=== PATIENT | female | born 1955 | race Caucasian/White ===

== ENCOUNTER → 2022-02-28 | Outpatient (CLI) | payer OTHER, SELFPAY ==
[2022-02-28 17:43] LABS: Absolute Lymphocyte Count 1.91 X10^3/uL (0.83-4.51); Basophil# 0.09 X10^3/uL; Basophil% 1.3 % (0-1); Eosinophil# 0.15 X10^3/uL; Eosinophils% 2.2 % (0-5); Hematocrit 38.6 % (37-47); Hemoglobin 13.4 g/dL (12.0-15.0); Lymphocyte # 1.91 X10^3/ul (0.83-4.51); Lymphocyte % 28.6 % (19-41); Mean Corp Hgb Conc 34.7 g/dL (32-36); Mean Corpuscular Hgb 31.5 pg (27.0-32.0); Mean Corpuscular Volume 90.8 fL (81-99); Mean Platelet Vol. 11.4 fl (6.2-12.0); Monocyte# 0.53 X10^3/uL; Monocyte% 7.9 % (0-10); NRBC Flagged by Analyzer 0 % (0-5); Neutrophil # 3.99 X10^3/uL (2.7-7.7); Neutrophil % 59.9 % (47-70); Platelet Count 261 K/mm3 (150-450); RBC Distribution Width CV 12.6 % (11.6-14.6); RBC Distribution Width SD 41.2 fl (35.1-43.9); Red Blood Count 4.25 M/mm3 (4.2-5.4); White Blood Count 6.7 K/mm3 (4.4-11.0)
[2022-02-28 17:47] LABS: CRP < 2.90 mg/L (0.0-3.0); Rheumatoid Factor < 10.0 IU/mL (<15)
[2022-02-28 17:48] LABS: Erythrocyte Sedimentation Rate 12 mm/hr (0-30)
[2022-03-02 14:07] LABS: Anti-Centromere B Ab <0.2 AI (0.0-0.9); Anti-Chromatin 0.5 AI (0.0-0.9); Anti-Jo <0.2 AI (0.0-0.9); Anti-Scleroderma-70 AB <0.2 AI (0.0-0.9); RNP Ab <0.2 AI (0.0-0.9); SJOGREN'S Anti-SS-A test < 0.2 AI (0.0-0.9); SJOGREN'S Anti-SS-B test < 0.2 AI (0.0-0.9); Smith Ab <0.2 AI (0.0-0.9)
[2022-03-04 17:58] LABS: CCP IgG Antibodies 3 units (0-19)
[2022-03-04 18:32] LABS: Anti-dsDNA Ab 9 IU/mL (0-9)
== END | disposition home or self-care (01) ==
LOC: MTLAB 15:01
PROVIDERS: PCP Family Medicine; Referring Provider Orthopaedic Surgery Sports Medicine; Visit Provider Orthopaedic Surgery Sports Medicine
DX: M79.89 Other specified soft tissue disorders (principal); M06.9 Rheumatoid arthritis, unspecified
CPT/HCPCS: 36415; 85025; 85652; 86140; 86200; 86225; 86235; 86431

== ENCOUNTER → 2022-05-02 | Outpatient (CLI) | payer OTHER, SELFPAY ==
[2022-05-02 12:27] LABS: Absolute Lymphocyte Count 1.96 X10^3/uL (0.83-4.51); Absolute Neutrophil Count 3.4 X10^3/uL (2.0-7.7); Basophil# 0.07 X10^3/uL; Basophil% 1.2 % (0-1); Eosinophil# 0.17 X10^3/uL; Eosinophils% 2.8 % (0-5); Hematocrit 42.4 % (37-47); Hemoglobin 13.8 g/dL (12.0-15.0); Lymphocyte # 1.96 X10^3/ul (0.83-4.51); Lymphocyte % 32.6 % (19-41); Mean Corp Hgb Conc 32.5 g/dL (32-36); Mean Corpuscular Hgb 30.3 pg (27.0-32.0); Mean Corpuscular Volume 93.2 fL (81-99); Mean Platelet Vol. 11.3 fl (6.2-12.0); Monocyte# 0.38 X10^3/uL; Monocyte% 6.3 % (0-10); NRBC Flagged by Analyzer 0 % (0-5); Neutrophil # 3.42 X10^3/uL (2.7-7.7); Neutrophil % 56.9 % (47-70); Platelet Count 273 K/mm3 (150-450); RBC Distribution Width CV 12.6 % (11.6-14.6); Red Blood Count 4.55 M/mm3 (4.2-5.4)
[2022-05-02 13:30] LABS: Hepatitis B Surface Antibody Reactive; Hepatitis B Surface Antigen Non-Reactive (Nonreactive); Hepatitis C Antibody Non-Reactive (Nonreactive)
[2022-05-02 14:27] LABS: ALB/GLOB Ratio 1.3 RATIO (0.9-2.4); AST(SGOT) 24 U/L (15-37); Alanine Aminotransfer ALT/SGPT 40 U/L (13-56); Albumin, Serum 4.3 g/dL (3.2-5.0); Alkaline Phosphatase 76 U/L (45-117); Anion Gap 5 (5-15); BUN 14 mg/dL (7-18); BUN/Creat Ratio 20.4 RATIO (10-20); Calcium,Total 9.9 mg/dL (8.5-10.1); Chloride 105 mmol/L (98-107); Creatinine, Serum 0.69 mg/dL (0.55-1.02); EST Glomerular Filtration Rate 91 mL/min (>60); Est Glom Filt Rate - Afr Amer 111 mL/min (>60); Globulin 3.4 g/dL (2.2-4.2); Glucose 97 mg/dL (74-106); Protein, Total 7.7 g/dL (6.4-8.2); Rheumatoid Factor < 10.0 IU/mL (<15); Sodium Level 139 mmol/L (136-145)
[2022-05-04 12:36] LABS: CCP IgG Antibodies 3 units (0-19)
== END | disposition home or self-care (01) ==
LOC: MTLAB 09:58
PROVIDERS: PCP Family Medicine; Referring Provider Internal Medicine Rheumatology; Visit Provider Internal Medicine Rheumatology
DX: M06.4 Inflammatory polyarthropathy (principal); M19.042 Primary osteoarthritis, left hand; M17.0 Bilateral primary osteoarthritis of knee; E78.5 Hyperlipidemia, unspecified
CPT/HCPCS: 36415; 80053; 85025; 86200; 86431; 86706; 86803; 87340

== ENCOUNTER → 2022-08-14 | Outpatient (CLI) | payer OTHER, SELFPAY ==
[2022-08-14 10:17] LABS: Absolute Lymphocyte Count 1.73 X10^3/uL (0.83-4.51); Basophil# 0.05 X10^3/uL; Basophil% 0.9 % (0-1); Eosinophils% 3.7 % (0-5); Hematocrit 39.8 % (37-47); Hemoglobin 13.1 g/dL (12.0-15.0); Lymphocyte # 1.73 X10^3/ul (0.83-4.51); Lymphocyte % 32.3 % (19-41); Mean Corp Hgb Conc 32.9 g/dL (32-36); Mean Corpuscular Hgb 30.5 pg (27.0-32.0); Mean Corpuscular Volume 92.6 fL (81-99); Mean Platelet Vol. 11.4 fl (6.2-12.0); Monocyte% 7.5 % (0-10); NRBC Flagged by Analyzer 0 % (0-5); Neutrophil # 2.97 X10^3/uL (2.7-7.7); Neutrophil % 55.4 % (47-70); Platelet Count 245 K/mm3 (150-450); RBC Distribution Width CV 13.9 % (11.6-14.6); RBC Distribution Width SD 46.4 fl (35.1-43.9); White Blood Count 5.4 K/mm3 (4.4-11.0)
[2022-08-14 10:28] LABS: ALB/GLOB Ratio 1.2 RATIO (0.9-2.4); AST(SGOT) 28 U/L (15-37); Alanine Aminotransfer ALT/SGPT 40 U/L (13-56); Albumin, Serum 3.8 g/dL (3.2-5.0); Alkaline Phosphatase 66 U/L (45-117); Anion Gap 3 (5-15); BUN 15 mg/dL (7-18); BUN/Creat Ratio 20.7 RATIO (10-20); Calcium,Total 9.7 mg/dL (8.5-10.1); Chloride 107 mmol/L (98-107); Creatinine, Serum 0.72 mg/dL (0.55-1.02); EST Glomerular Filtration Rate 86 mL/min (>60); Est Glom Filt Rate - Afr Amer 104 mL/min (>60); Globulin 3.3 g/dL (2.2-4.2); Glucose 108 mg/dL (74-106); Potassium 3.7 mmol/L (3.5-5.1); Protein, Total 7.1 g/dL (6.4-8.2); Sodium Level 136 mmol/L (136-145)
== END | disposition home or self-care (01) ==
LOC: MTLAB 08:09
PROVIDERS: PCP Family Medicine; Referring Provider Internal Medicine Rheumatology; Visit Provider Internal Medicine Rheumatology
DX: M06.4 Inflammatory polyarthropathy (principal); Z79.899 Other long term (current) drug therapy
CPT/HCPCS: 36415; 80053; 85025

== ENCOUNTER → 2022-10-14 | Outpatient (CLI) | payer OTHER, SELFPAY ==
[2022-10-14 15:40] LABS: Absolute Lymphocyte Count 1.99 X10^3/uL (0.83-4.51); Absolute Neutrophil Count 3.2 X10^3/uL (2.0-7.7); Basophil# 0.05 X10^3/uL; Basophil% 0.9 % (0-1); Eosinophil# 0.17 X10^3/uL; Eosinophils% 2.9 % (0-5); Hematocrit 38.5 % (37-47); Hemoglobin 12.9 g/dL (12.0-15.0); Lymphocyte # 1.99 X10^3/ul (0.83-4.51); Lymphocyte % 34.1 % (19-41); Mean Corp Hgb Conc 33.5 g/dL (32-36); Mean Corpuscular Hgb 31.5 pg (27.0-32.0); Mean Corpuscular Volume 94.1 fL (81-99); Mean Platelet Vol. 10.7 fl (6.2-12.0); Monocyte# 0.46 X10^3/uL; Monocyte% 7.9 % (0-10); NRBC Flagged by Analyzer 0 % (0-5); Neutrophil # 3.16 X10^3/uL (2.7-7.7); Platelet Count 247 K/mm3 (150-450); RBC Distribution Width CV 13.1 % (11.6-14.6); RBC Distribution Width SD 44.9 fl (35.1-43.9); Red Blood Count 4.09 M/mm3 (4.2-5.4); White Blood Count 5.8 K/mm3 (4.4-11.0)
[2022-10-14 15:55] LABS: AST(SGOT) 20 U/L (15-37); Alanine Aminotransfer ALT/SGPT 34 U/L (13-56); Albumin, Serum 3.7 g/dL (3.2-5.0); Alkaline Phosphatase 74 U/L (45-117); Anion Gap 6 (5-15); BUN 17 mg/dL (7-18); BUN/Creat Ratio 25.5 RATIO (10-20); Calcium,Total 9.5 mg/dL (8.5-10.1); Chloride 108 mmol/L (98-107); Creatinine, Serum 0.67 mg/dL (0.55-1.02); EST Glomerular Filtration Rate 94 mL/min (>60); Est Glom Filt Rate - Afr Amer 114 mL/min (>60); Globulin 3.7 g/dL (2.2-4.2); Glucose 97 mg/dL (74-106); Potassium 3.9 mmol/L (3.5-5.1); Protein, Total 7.4 g/dL (6.4-8.2); Sodium Level 139 mmol/L (136-145)
== END | disposition home or self-care (01) ==
LOC: MTLAB 12:58
PROVIDERS: PCP Family Medicine; Referring Provider Internal Medicine Rheumatology; Visit Provider Internal Medicine Rheumatology
DX: M06.4 Inflammatory polyarthropathy (principal); M19.042 Primary osteoarthritis, left hand; Z79.899 Other long term (current) drug therapy
CPT/HCPCS: 36415; 80053; 85025

== ENCOUNTER → 2022-12-01 | Outpatient (CLI) | payer OTHER, SELFPAY ==
[2022-12-01 10:15] LABS: Absolute Lymphocyte Count 1.33 X10^3/uL (0.83-4.51); Absolute Neutrophil Count 4.7 X10^3/uL (2.0-7.7); Basophil# 0.08 X10^3/uL; Basophil% 1.2 % (0-1); Eosinophil# 0.13 X10^3/uL; Hematocrit 40.7 % (37-47); Hemoglobin 13.5 g/dL (12.0-15.0); Lymphocyte # 1.33 X10^3/ul (0.83-4.51); Lymphocyte % 20.2 % (19-41); Mean Corp Hgb Conc 33.2 g/dL (32-36); Mean Corpuscular Hgb 31.6 pg (27.0-32.0); Mean Corpuscular Volume 95.3 fL (81-99); Monocyte# 0.31 X10^3/uL; Monocyte% 4.7 % (0-10); NRBC Flagged by Analyzer 0 % (0-5); Neutrophil % 71.6 % (47-70); Platelet Count 240 K/mm3 (150-450); RBC Distribution Width CV 13.5 % (11.6-14.6); Red Blood Count 4.27 M/mm3 (4.2-5.4); White Blood Count 6.6 K/mm3 (4.4-11.0)
[2022-12-01 10:57] LABS: ALB/GLOB Ratio 1.1 RATIO (0.9-2.4); AST(SGOT) 16 U/L (15-37); Alanine Aminotransfer ALT/SGPT 28 U/L (13-56); Albumin, Serum 3.8 g/dL (3.2-5.0); Alkaline Phosphatase 65 U/L (45-117); Anion Gap 3 (5-15); BUN 10 mg/dL (7-18); BUN/Creat Ratio 13.8 RATIO (10-20); Calcium,Total 9.6 mg/dL (8.5-10.1); Chloride 107 mmol/L (98-107); Creatinine, Serum 0.72 mg/dL (0.55-1.02); EST Glomerular Filtration Rate 86 mL/min (>60); Est Glom Filt Rate - Afr Amer 104 mL/min (>60); Globulin 3.6 g/dL (2.2-4.2); Glucose 92 mg/dL (74-106); Potassium 3.9 mmol/L (3.5-5.1); Protein, Total 7.4 g/dL (6.4-8.2); Sodium Level 140 mmol/L (136-145)
== END | disposition home or self-care (01) ==
LOC: MTLAB 09:16
PROVIDERS: PCP Family Medicine; Referring Provider Internal Medicine Rheumatology; Visit Provider Internal Medicine Rheumatology
DX: M06.4 Inflammatory polyarthropathy (principal); M19.041 Primary osteoarthritis, right hand; M19.042 Primary osteoarthritis, left hand; M17.0 Bilateral primary osteoarthritis of knee; E78.5 Hyperlipidemia, unspecified; Z79.899 Other long term (current) drug therapy
CPT/HCPCS: 36415; 80053; 85025

== ENCOUNTER → 2023-02-06 | Outpatient (CLI) | payer MEDICARE, SELFPAY ==
[2023-02-06 10:16] LABS: Absolute Lymphocyte Count 1.53 X10^3/uL (0.83-4.51); Absolute Neutrophil Count 3.3 X10^3/uL (2.0-7.7); Basophil# 0.05 X10^3/uL; Basophil% 0.9 % (0-1); Eosinophil# 0.13 X10^3/uL; Eosinophils% 2.4 % (0-5); Hemoglobin 13.4 g/dL (12.0-15.0); Lymphocyte # 1.53 X10^3/ul (0.83-4.51); Lymphocyte % 27.7 % (19-41); Mean Corp Hgb Conc 32.7 g/dL (32-36); Mean Corpuscular Hgb 31.5 pg (27.0-32.0); Mean Corpuscular Volume 96.2 fL (81-99); Mean Platelet Vol. 10.9 fl (6.2-12.0); Monocyte# 0.51 X10^3/uL; Monocyte% 9.2 % (0-10); NRBC Flagged by Analyzer 0 % (0-5); Neutrophil % 59.6 % (47-70); Platelet Count 261 K/mm3 (150-450); RBC Distribution Width CV 12.8 % (11.6-14.6); RBC Distribution Width SD 44.8 fl (35.1-43.9); Red Blood Count 4.26 M/mm3 (4.2-5.4); White Blood Count 5.5 K/mm3 (4.4-11.0)
[2023-02-06 10:52] LABS: ALB/GLOB Ratio 1.1 RATIO (0.9-2.4); AST(SGOT) 23 U/L (15-37); Alanine Aminotransfer ALT/SGPT 35 U/L (13-56); Albumin, Serum 3.8 g/dL (3.2-5.0); Alkaline Phosphatase 69 U/L (45-117); Anion Gap 6 (5-15); BUN 11 mg/dL (7-18); BUN/Creat Ratio 16.2 RATIO (10-20); Calcium,Total 9.5 mg/dL (8.5-10.1); Chloride 108 mmol/L (98-107); Creatinine, Serum 0.68 mg/dL (0.55-1.02); EST Glomerular Filtration Rate 92 mL/min (>60); Est Glom Filt Rate - Afr Amer 111 mL/min (>60); Globulin 3.5 g/dL (2.2-4.2); Glucose 95 mg/dL (74-106); Potassium 3.7 mmol/L (3.5-5.1); Protein, Total 7.3 g/dL (6.4-8.2); Sodium Level 140 mmol/L (136-145)
== END | disposition home or self-care (01) ==
LOC: MTLAB 08:23
PROVIDERS: PCP Family Medicine; Referring Provider Internal Medicine Rheumatology; Visit Provider Internal Medicine Rheumatology
DX: M06.4 Inflammatory polyarthropathy (principal); M19.041 Primary osteoarthritis, right hand; M17.0 Bilateral primary osteoarthritis of knee; Z79.899 Other long term (current) drug therapy
CPT/HCPCS: 36415; 80053; 85025

== ENCOUNTER → 2023-03-31 | Outpatient (CLI) | payer MEDICARE, SELFPAY ==
[2023-03-31 17:39] LABS: Absolute Lymphocyte Count 1.16 X10^3/uL (0.83-4.51); Absolute Neutrophil Count 6.3 X10^3/uL (2.0-7.7); Basophil# 0.06 X10^3/uL; Basophil% 0.8 % (0-1); Eosinophil# 0.03 X10^3/uL; Eosinophils% 0.4 % (0-5); Hematocrit 40.6 % (37-47); Hemoglobin 13.2 g/dL (12.0-15.0); Lymphocyte # 1.16 X10^3/ul (0.83-4.51); Lymphocyte % 14.7 % (19-41); Mean Corp Hgb Conc 32.5 g/dL (32-36); Mean Corpuscular Hgb 31.1 pg (27.0-32.0); Mean Corpuscular Volume 95.8 fL (81-99); Mean Platelet Vol. 10.7 fl (6.2-12.0); Monocyte# 0.26 X10^3/uL; Monocyte% 3.3 % (0-10); NRBC Flagged by Analyzer 0 % (0-5); Neutrophil # 6.34 X10^3/uL (2.7-7.7); Neutrophil % 80.5 % (47-70); Platelet Count 260 K/mm3 (150-450); RBC Distribution Width CV 13.4 % (11.6-14.6); RBC Distribution Width SD 46.5 fl (35.1-43.9); Red Blood Count 4.24 M/mm3 (4.2-5.4); White Blood Count 7.9 K/mm3 (4.4-11.0)
[2023-03-31 18:29] LABS: ALB/GLOB Ratio 1.1 RATIO (0.9-2.4); AST(SGOT) 25 U/L (15-37); Alanine Aminotransfer ALT/SGPT 49 U/L (13-56); Alkaline Phosphatase 83 U/L (45-117); Anion Gap 8 (5-15); BUN 16 mg/dL (7-18); BUN/Creat Ratio 19.8 RATIO (10-20); Calcium,Total 9.5 mg/dL (8.5-10.1); Chloride 104 mmol/L (98-107); Creatinine, Serum 0.81 mg/dL (0.55-1.02); EST Glomerular Filtration Rate 75 mL/min (>60); Est Glom Filt Rate - Afr Amer 91 mL/min (>60); Globulin 3.7 g/dL (2.2-4.2); Glucose 127 mg/dL (74-106); Potassium 3.8 mmol/L (3.5-5.1); Protein, Total 7.7 g/dL (6.4-8.2); Sodium Level 141 mmol/L (136-145)
== END | disposition home or self-care (01) ==
PROVIDERS: PCP Family Medicine; Referring Provider Internal Medicine Rheumatology; Visit Provider Internal Medicine Rheumatology
DX: M06.4 Inflammatory polyarthropathy (principal); M19.041 Primary osteoarthritis, right hand; M17.0 Bilateral primary osteoarthritis of knee; Z79.899 Other long term (current) drug therapy
CPT/HCPCS: 36415; 80053; 85025

== ENCOUNTER → 2023-06-23 | Outpatient (CLI) | payer MEDICARE, SELFPAY ==
[2023-06-23 15:28] LABS: Absolute Lymphocyte Count 1.89 X10^3/uL (0.83-4.51); Absolute Neutrophil Count 3.5 X10^3/uL (2.0-7.7); Basophil# 0.07 X10^3/uL; Basophil% 1.2 % (0-1); Eosinophil# 0.14 X10^3/uL; Eosinophils% 2.3 % (0-5); Hematocrit 36.8 % (37-47); Hemoglobin 12.1 g/dL (12.0-15.0); Lymphocyte # 1.89 X10^3/ul (0.83-4.51); Lymphocyte % 31.2 % (19-41); Mean Corp Hgb Conc 32.9 g/dL (32-36); Mean Corpuscular Hgb 31.2 pg (27.0-32.0); Mean Corpuscular Volume 94.8 fL (81-99); Mean Platelet Vol. 11.3 fl (6.2-12.0); Monocyte# 0.48 X10^3/uL; Monocyte% 7.9 % (0-10); NRBC Flagged by Analyzer 0 % (0-5); Neutrophil # 3.45 X10^3/uL (2.7-7.7); Neutrophil % 57.1 % (47-70); Platelet Count 239 K/mm3 (150-450); RBC Distribution Width CV 13.1 % (11.6-14.6); RBC Distribution Width SD 44.5 fl (35.1-43.9); Red Blood Count 3.88 M/mm3 (4.2-5.4); White Blood Count 6.1 K/mm3 (4.4-11.0)
[2023-06-23 16:13] LABS: ALB/GLOB Ratio 1.1 RATIO (0.9-2.4); AST(SGOT) 24 U/L (15-37); Alanine Aminotransfer ALT/SGPT 31 U/L (13-56); Albumin, Serum 3.7 g/dL (3.2-5.0); Alkaline Phosphatase 62 U/L (45-117); Anion Gap 8 (5-15); BUN 12 mg/dL (7-18); BUN/Creat Ratio 13.3 RATIO (10-20); Calcium,Total 9.4 mg/dL (8.5-10.1); Chloride 108 mmol/L (98-107); EST Glomerular Filtration Rate 66 mL/min (>60); Est Glom Filt Rate - Afr Amer 80 mL/min (>60); Globulin 3.3 g/dL (2.2-4.2); Glucose 94 mg/dL (74-106); Potassium 3.8 mmol/L (3.5-5.1); Sodium Level 141 mmol/L (136-145)
--- OUTSIDE RECORDS SUMMARY | 2023-06-23 18:41 | XMS RPT_ITS | CCD ---
Author Name Unknown Address [address] [place] [address] Organization [facility] Care Team Providers Care Tanning Salon Attendant Name Role Phone Jm Hughes Unavailable Unavailable Migdalia Lindo Unavailable Unavailable Migdalia Lindo Unavailable Unavailable Unavailable Saman Walker OD Unavailable Grace Weathers Unavailable Grace Weathers Primary Care Provider HERACLIO REEVES Attending Unavailable NISH LINDO Primary Care Unavailable Migdalia Lindo MD Primary Care Provider Migdalia Lindo MD Unavailable MIGDALIA LINDO Attending Unavailable MIGDALIA LINDO Primary Care Unavailable MIGDALIA LINDO Primary Care Unavailable MD JM HUGHSE Attending Unavail MD JM Scales Referring Unavail MD MIGDALIA Ocampo Primary Care UnavailMD JM Christensen Attending Unavail MD MIGDALIA Ocampo Primary Care UnavailJM Christensen Attending UnavailJM Christensen Referring UnavailDr. Migdalia Kramer Primary Care Unavailab le Allergies Allergy Classification Reported Allergen(s) Allergy Type Date of Onset Reaction(s) Facility Latex (2 sources) natural latex rubber Substance Allergy [facility] Work Phone: (15 sources) natural latex rubber; Translations: [LATEX] allergy to substance 8 [facility] Repository (5 sources) Bacitracin / Polymyxin B; Translations: [BACITRACIN-POLY MYXIN B] Drug Allergy 10-17-200 6 Other [facility] Work Phone: (2 sources) Latex Propensity to adverse reactions 8 Hives [facility] Work Phone: Medications Current Medications Medication Drug Class(es) Dates Sig (Normalized) Sig (Original) benoxinate hydrochloride 4 mg/ml / fluorescein sodium 2.5 mg/ml ophthalmic solution (1 source) Diagnostic Dye Start: 08-18-2022 End: 08-19-2022 fluorescein-benoxi travis 0.25-0.4 % 1 Drop (FLURESS) folic acid 1 mg oral tablet (1 source) Start: 10-16-2022 take 1 tablet by mouth once daily folic acid (Folvite) 1 mg tablet Indications: Rheumatoid arthritis involving right hand with negative rheumatoid factor (CMS/HCC) Take 2 tablets (2 mg) by mouth once daily. 0 10/16/2022 Active phenylephrine hydrochloride 25 mg/ml ophthalmic solution (1 source) alpha-1 Adrenergic Agonist Start: 08-18-2022 End: 08-19-2022 PHENYLephrine 2.5 % 1 Drop (AK-DILATE, GUS-SYNEPHRINE) proparacaine hydrochloride 5 mg/ml ophthalmic solution (1 source) Local Anesthetic Start: 08-18-2022 End: 08-19-2022 proparacaine 0.5 % 1 Drop (ALCAINE) tropicamide 10 mg/ml ophthalmic solution (1 source) Anticholinergic Start: 08-18-2022 End: 08-19-2022 tropicamide 1 % 1 Drop (MYDRIACYL) Completed/Discontinued Medications Medication Drug Class(es) Dates Sig (Normalized) Sig (Original) ALL PURPOSE MULTIVITAMIN-MIN ORAL TAB (1 source) Start: 12-26-2004 take 1 tablet by mouth once daily ALL PURPOSE MULTIVITAMIN-MIN ORAL TAB Take one(1) tablet daily. 0 12/26/2004 Active Problems Active Problems Problem Classification Problem Date Documented Da te Episodic/Chronic Inflammation; infection of eye (except that caused by tuberculosis or sexually transmitteddisease) (1 source) Bilateral punctate keratitis of eyes; Translations: [Punctate keratitis, bilateral] Chronic Inflammation; infection of eye (except that caused by tuberculosis or sexually transmitteddisease) (11 sources) Viral conjunctivitis; Translations: [Unspecified diseases of conjunctiva due to viruses] Episodic Osteoarthritis (12 sources) Osteoarthritis of left knee joint; Translations: [Osteoarthrosis, localized, primary, lower leg] Chronic Other connective tissue disease (11 sources) Foot pain; Translations: [Pain in limb] Episodic Other eye disorders (1 source) Tear film insufficiency; Translations: [Dry eye syndrome of bilateral lacrimal glands] Episodic Other female genital disorders (14 sources) Disorder of female perineum; Translations: [Pruritus ani] Episodic Other gastrointestinal disorders (1 source) Irritable bowel syndrome; Translations: [Irritable bowel syndrome without diarrhea] Onset: 12-27-2004 12-27-2004 Chronic Other non-traumatic joint disorders (11 sources) Pain in left knee; Translations: [Knee pain, left] Episodic Other and delivery including normal (13 sources) Delivery normal; Translations: [Normal delivery] Episodic Past or Other Problems Problem Classification Problem Date Documented Date Episodic/Chronic Allergic reactions (2 sources) Contact dermatitis; Translations: [Unspecified contact dermatitis, unspecified cause] Onset: 02-17-2006 02-17-2006 Episodic Neoplasms of unspecified nature or uncertain behavior (1 source) Neoplasm of uncertain behavior of skin; Translations: [Neoplasm of uncertain behavior of skin] Onset: 02-04-2006 02-04-2006 Episodic Osteoarthritis (1 source) Osteoarthritis of left knee joint; Translations: [Primary osteoarthritis of left knee] Other and unspecified benign neoplasm (1 source) Benign neoplasm of skin; Translations: [Benign neoplasm of skin] Onset: 02-04-2006 02-04-2006 Episodic Other and unspecified benign neoplasm (1 source) Benign neoplasm of skin of lower limb; Translations: [Other benign neoplasm of skin of unspecified lower limb, including hip] Onset: 02-04-2006 02-04-2006 Episodic Other circulatory disease (1 source) Non-neoplastic nevus; Translations: [Nevus, non-neoplastic] Onset: 02-04-2006 02-04-2006 Episodic Other injuries and conditions due to external causes (1 source) Open wound; Translations: [Other injury of unspecified body region, initial encounter] Onset: 02-17-2006 02-17-2006 Episodic Other screening for suspected conditions (not mental disorders or infectious disease) (1 source) Measurement finding above reference range; Translations: [High serum cholestanol] Other skin disorders (1 source) Inflamed seborrheic keratosis; Translations: [Inflamed seborrheic keratosis] Onset: 02-04-2006 02-04-2006 Episodic Other skin disorders (1 source) Scar conditions and fibrosis of skin; Translations: [Scar conditions and fibrosis of skin] Onset: 03-06-2006 03-06-2006 Episodic Unclassified (14 sources) Finding of menstrual bleeding; Translations: [Menstruation] Results Test Name Value Interpretation Reference Range Facil ity Vital Signs Date Time Vital Sign Value Performing Clinician Facility 11-26-2022 09:10-0400 Body height 158.75 cm Migdalia Correa [place] Work Phone: [facility] Work Phone: 11-26-2022 09:10-0400 Body mass index (BMI) [Ratio] 32.02 kg/m2 Migdalia Lindo Work Phone: [facility] Work Phone: 11-26-2022 09:10-0400 Body surface area Derived from formula 1.83 m2 Migdalia Lindo Work Phone: [facility] Work Phone: 11-26-2022 09:10-0400 Body weight 80.7 kg Migdalia Lindo Work Phone: [facility] Work Phone: 11-26-2022 09:10-0400 Diastolic blood pressure 68 mm[Hg] Migdalia Pavoner Work Phone: [facility] Work Phone: 11-26-2022 09:10-0400 Systolic blood pressure 122 mm[Hg] Migdalia Lindo Work Phone: [facility] Work Phone: 10-29-2022 08:22-0400 Body height 157.5 cm Migdalia Lindo MD Work Phone: [facility] 10-29-2022 08:22-0400 Body mass index (BMI) [Ratio] 33.29 kg/m2 Migdalia Lindo MD Work Phone: [facility] 10-29-2022 08:22-0400 Body weight 82.56 kg Migdalia Lindo MD Work Phone: [facility] 10-29-2022 08:22-0400 Diastolic blood pressure 80 mm[Hg] Migdalia Lindo MD Work Phone: [facility] 10-29-2022 08:22-0400 Heart rate 55 /min Migdalia Lindo MD Work Phone: [facility] 10-29-2022 08:22-0400 SaO2% (BldA) [Mass fraction] 96 % Migdalia Lindo MD Work Phone: [facility] 10-29-2022 08:22-0400 Systolic blood pressure 112 mm[Hg] Migdalia Lindo MD Work Phone: [facility] 11-20-2021 09:23-0400 Body height 158.75 cm Migdalia Lindo Work Phone: [facility] Work Phone: 11-20-2021 09:23-0400 Body mass index (BMI) [Ratio] 31.7 kg/m2 Migdalia Lindo Work Phone: [facility] [address] Work Phone: 11-20-2021 09:23-0400 Body surface area Derived from formula 1.82 m2 Migdalia Lindo Work Phone: [facility] [address] Work Phone: 11-20-2021 09:23-0400 Body weight 79.9 kg Migdalia Lindo Work Phone: [facility] [address] Work Phone: 11-20-2021 09:23-0400 Diastolic blood pressure 72 mm[Hg] Migdalia Lindo Work Phone: [address] Work Phone: 11-20-2021 09:23-0400 Systolic blood pressure 114 mm[Hg] Migdalia L [place] Work Phone: [address] Work Phone: 11-26-2020 08:00-0400 Systolic blood pressure 112 mm[Hg] Migdalia L [place] Work Phone: [facility] Work Phone: 11-22-2020 13:02-0400 Body height 158.8 cm Migdalia L [place] Work Phone: [facility] Work Phone: 11-22-2020 13:02-0400 Body mass index (BMI) [Ratio] 30.97 kg/m2 Migdalia L [place] Work Phone: [facility] Work Phone: 11-22-2020 13:02-0400 Body surface area Derived from formula 1.8 m2 Migdalia L [place] Work Phone: [facility] Work Phone: 11-22-2020 13:02-0400 Body temperature 97.3 [degF] Migdalia L [place] Work Phone: [facility] Work Phone: 11-22-2020 13:02-0400 Body weight 78.11 kg Migdalia L [place] Work Phone: [facility] Work Phone: 11-22-2020 13:02-0400 Diastolic blood pressure 77 mm[Hg] Migdalia L [place] Work Phone: [facility] Work Phone: 11-22-2020 13:02-0400 Heart rate 57 /min Migdalia L [place] Work Phone: [facility] Work Phone: 11-22-2020 13:02-0400 Systolic blood pressure 112 mm[Hg] Migdalia Pavoner Work Phone: [facility] Work Phone: 02-13-2020 16:31-0400 BMI (Body Mass Index) 30.3 kg/m2 Migdalia Lindo [facility] Work Phone: 02-13-2020 16:31-0400 Body weight 77.77 kg Migdalia Lindo [facility] Work Phone: 02-13-2020 16:31-0400 BP Diastolic 76 mm[Hg] Migdalia Lindo [facility] Work Phone: 02-13-2020 16:31-0400 BP Systolic 120 mm[Hg] Migdalia Lindo [facility] Work Phone: 02-13-2020 16:31-0400 BSA (Body Surface Area) 1.81 m2 Migdalia Lindo [facility] Work Phone: 02-13-2020 16:31-0400 Height 160.2 cm Migdalia Lindo [facility] Work Phone: 02-13-2020 16:31-0400 Pulse (Heart Rate) 60 /min Migdalia Lindo [facility] Work Phone: 12-09-2019 15:03-0400 BMI (Body Mass Index) 30.56 kg/m2 Migdalia Lindo [facility] [address] Work Phone: 12-09-2019 15:03-0400 Body Temperature 97.3 [degF] Migdalia Lindo [facility] [address] Work Phone: 12-09-2019 15:03-0400 Body weight 75.8 kg Migdalia Lindo [facility] [address] Work Phone: 12-09-2019 15:03-0400 BP Diastolic 70 mm[Hg] Migdalia Lindo [facility] [address] Work Phone: 12-09-2019 15:03-0400 BP Systolic 120 mm[Hg] Migdalia campos [address] Work Phone: 12-09-2019 15:03-0400 BSA (Body Surface Area) 1.77 m2 Migdalia Lobo [place] Work Phone: 12-09-2019 15:03-0400 Height 157.48 cm Migdalia campos [address] Work Phone: 03-09-2019 16:21-0500 BMI (Body Mass Index) 32.42 kg/m2 Jm Lobo [place] Work Phone: 03-09-2019 16:21-0500 Body weight 80.4 kg Jm Lobo [place] Work Phone: 03-09-2019 16:21-0500 BP Diastolic 68 mm[Hg] Jm Lobo [place] Work Phone: 03-09-2019 16:21-0500 BP Systolic 118 mm[Hg] Jm Lobo [place] Work Phone: 03-09-2019 16:21-0500 BSA (Body Surface Area) 1.82 m2 Jm Lobo [place] Work Phone: 03-09-2019 16:21-0500 Height 157.48 cm Jm Lobo [place] Work Phone: Encounters Encounter Date Encounter Type Care Provider Facility Start: 12-03-2022 Chart Update Migdaliasantiago infante Work Phone: [facility] [place] Work Phone: Start: 12-01-2022 ambulatory JM HUGHES Fa cility:[id number] Start: 11-27-2022 Encounter for gynecological examination (general) (routine) without abnormal findings MD JM HUGHES [facility] Start: 11-26-2022 Encounter for gynecological examination (general) (routine) without abnormal findings MD JM HUGHES Facility:[facility] Start: 11-26-2022 End: 11-27-2022 [facility] Start: 10-29-2022 End: 10-29-[address] [facility] Start: 10-29-2022 End: 10-29-2022 Office outpatient visit 15 minutes Migdalia Lindo MD Work Phone: [facility] Procedures Date Procedure Procedure Detail Performing Clinician Start: 11-26-2022 Lipid panel MIGDALIA ROCHA Start: 11-27-2021 Mammography Migdalia rocha MD Work Phone: Start: 11-20-2021 Microscopic observat ion [Identifier] in Cervix by Cyto stain Migdalia Lindo MD Work Phone: Start: 06-21-2021 End: 06-21-2021 Colonoscopy Migdalia Lindo Work Phone: Start: 11-23-2020 Lipid 1996 panel - S marina or Plasma Migdalia Lindo MD Work Phone: Start: 02-25-2011 Colonoscopy Migdalia Lindo Work Phone: Plan of Treatment Date Care Activity Detail Author Start: 06-21-2031 Screening for malignant neoplasm of colon [facility] Start: 11-23-2025 Lipid panel Lipid Panel [facility] Start: 11-20-2024 Screening for malignant neoplasm of cervix [facility] Start: 12-01-2023 Patient encounter procedure ANNUAL, Provider: Jm Hughes, Status: Pen, Time: 9:[address] Work Phone: Start: 01-29-2023 End: 10-30-2023 Lipid 1996 panel - Serum or Plasma Lipid Panel Lab Routine Screening cholesterol level Expected: 01/29/2023 (Approximate), Expires: 10/30/2023 [facility] Service Area Work Phone: Immunizations Immunization Date Immunization Notes Care Provider Fa cili 03-20-2020 zoster vaccine recombinant Migdalia Lindo Work Phone: [facility] Work Phone: Payers Date Payer Category Payer Unknown 2006 Unknown [id number] 1955 Unknown [id number] 1955 Unknown [id number] 1957 Unknown [id number] [id number] 1955 Unknown [id number] [id number] 1955 Unknown [id number] Social History Date Type Detail Facility Assertion Unknown if ever smoked Women [address] Work Phone: No alcohol use No alcohol use [facility] Work Phone: Start: 08-18-2022 End: 10-29-2022 Tobacco smoking status NHIS Never smoked tobacco [facility] Start: 08-18-2022 End: 10-29-2022 Tobacco use and exposure Smokeless tobacco non-user [facility] Start: 08-18-2022 Alcohol intake Current non-dr change management specialist of alcohol (finding) [facility] Start: 1955 Sex Assigned At Not on file [facility] Gender identity Not on file [facility] ospitals [facility] Work Phone: Start: 10-19-2022 End: 10-29-2022 Exposure to SARS-CoV-2 (event) Not sure [facility] Functional Status Date Assessment Result Facility NEGATED: Highlighted row Functional performance Functional status health issues are not documented Disease [place] [address] [place] [address] Work Phone: Mental Status Date Assessment Result Facility NEGATED: Highlighted row Cognitive function [Interpretation] Cognitive status health issues are not documented Disease [address] Work Phone: Clinical Note 11-26-2022 Note Date & Type Note Facility 11-26-2022 Note 48 Date of Procedure: 11/26/2022 Pathologist: [facility], Cytology Date Reported: 12/03/2022 Date Received: 11/26/2022 Submitting Physician: JM HUGHES MD FINAL CYTOLOGICAL INTERPRETATION A. THINPREP PAP VAGINAL: Specimen Adequacy: SATISFACTORY FOR EVALUATION. Quality Indicator: Partially obscuring inflammation. General Categorization: NEGATIVE FOR INTRAEPITHELIAL LESION OR MALIGNANCY. Ancillary Testing: Specimen does not meet the requisition-stated criteria for HPV testing. See Pap test interpretation above. Slide(s) initially screened by a Senior Sales Associate at [facility], [address] [place] [address] This specimen has been analyzed by the BoqiiPrep Imaging System ([employer] an automated imaging and review system, which assists the laboratory in evaluating cells on ThinPrep Pap tests. Following automated imaging, selected carpio from every slide were reviewed by a assembler steam and gas turbine and/or pathologist. Electronically Signed Out By [facility], Cytology//JMD By the signature on this report, the individual or group listed as making the Final Interpretation/Diagnosis certifies that they have reviewed this case. Diagnostic interpretation performed at [facility] [address] [facility] [place] [address] Educational Note: Cervical cytology is a screening procedure primarily for squamous cancers and precursors and has associated false-negative and false-positive results as evidenced by published data. Your patient?s test should be interpreted in this context, together with patient?s history and clinical findings. Regular sampling and follow-up of unexplained clinical signs and symptoms are recommended to minimize false negative results. Clinical History Date of Last Menstrual Period: Hysterectomy 2000 Other Clinical Conditions: HPV Reflex for ASC-US only - Include HPV Genotype Clinical Diagnosis History: Pap test, as part of routine gynecological examination - (Z01.419); Vaginal Pap smear - (Z12.72) Source of Specimen A: THINPREP PAP VAGINAL [facility] Department of Pathology [address] [place] [address] History of Present illness Narrative 10-29-2022 Migdalia Lindo MD - 10/29/2022 8:20 AM EDT Note Date & Type Note Facility 10-29-2022 History of Present illness Narrative Subjective Patient ID: Kami Marquez is a 66 y.o. female who presents for Annual Exam. HPI Dr Hughes per plant operator helper colonoscopy jun 21, 2021 neg fxhx for colon cancer Rheumatoid seronegative Takes [address] Sarahy Arcos cont methotrexate Right hip and left knee worse hurts to walk up [place] Bicycle seems to be the best on joints Occ NSAIDS H/o palpitations worked up 5 years had holter x 24 hours Review of Systems Cardiovascular: Positive for palpitations. Negative for chest pain. Gastrointestinal: Pyrosis none Endocrine: Negative for polydipsia and polyphagia. Objective BP 112/80 Pulse 55 Ht 1.575 m (5' 2 ) Wt 82.6 kg (182 lb) SpO2 96% BMI 33.29 kg/m Physical Exam Vitals reviewed. Constitutional: General: She is not in acute distress. Appearance: Normal appearance. HENT: Head: Normocephalic and atraumatic. Eyes: Conjunctiva/sclera: Conjunctivae normal. Cardiovascular: Rate and Rhythm: Normal rate and regular rhythm. Heart sounds: No murmur heard. Pulmonary: Effort: Pulmonary effort is normal. Breath sounds: Normal breath sounds. Abdominal: General: Abdomen is flat. Bowel sounds are normal. Palpations: Abdomen is soft. There is no mass. Lymphadenopathy: Cervical: No cervical adenopathy. Skin: General: Skin is warm and dry. Neurological: General: No focal deficit present. Mental Status: She is alert and oriented to person, place, and time. Psychiatric: Mood and Affect: Mood normal. Judgment: Judgment normal. Assessment/Plan Diagnoses and all orders for this visit: Screening cholesterol level - Lipid Panel; Future Rheumatoid arthritis involving right hand with negative rheumatoid factor (CMS/HCC) documented in this encounter [facility] Work Phone: Progress note 08-18-2022 Note Date & Type Note Facility 08-18-2022 Note HNO ID: [id number] Author: Heraclio Reeves MD Service: ? Author Type: Physician Type: Progress Notes Filed: 08/18/2022 3:56 PM Note Text: ASSESSMENT/PLAN: 1. Dry eye syndrome of both eyes - ICD9: 375.15, ICD10: H04.123 (primary diagnosis) 2. 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 Start: Systane Complete solution instill 1 drop 3 times daily Both Eyes. 3. Primary osteoarthritis involving multiple joints - ICD9: 715.98, ICD10: M15.9 Continue to monitor with primary care physician/Rheumatology. Heraclio Reeves MD I have confirmed and edited as necessary the relevant ophthalmic history, review of systems, surgical history, and ophthalmological examination findings as obtained by the ophthalmic technical staff. I have seen and examined Kami Marquez. I have discussed the examination findings, diagnosis, and treatment options with Kami Marquez and/or her family. I have also reviewed and agree with the assessment and plan as stated above and agree with all its relevant components. I gave the patient the opportunity to ask questions about the findings, diagnosis, and treatment options. [facility] 08-18-2022 Patient Instructions Note Date & Type Note Facility 08-18-2022 Instructions Heraclio Reeves MD - 08/18/2022 3:56 PM EDT Discontinue: Pataday solution Both Eyes. Start: Systane Complete solution instill 1 drop 3 times daily Both Eyes. If you have any questions please contact our office at [phone]. After office hours or on the weekend, please call Dr. Reeves on his cell phone at [phone]. documented in this encounter [facility] History of Present illness Narrative 08-18-2022 Heraclio Reeves MD - 08/18/2022 3:54 PM EDT Note Date & Type Note Facility 08-18-2022 History of Presen t illness Narrative ASSESSMENT/PLAN: 1. Dry eye syndrome of both eyes - ICD9: 375.15, ICD10: H04.123 (primary diagnosis) 2. 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 Start: Systane Complete solution instill 1 drop 3 times daily Both Eyes. 3. Primary osteoarthritis involving multiple joints - ICD9: 715.98, ICD10: M15.9 Continue to monitor with primary care physician/Rheumatology. Heraclio Reeves MD I have confirmed and edited as necessary the relevant ophthalmic history, review of systems, surgical history, and ophthalmological examination findings as obtained by the ophthalmic technical staff. I have seen and examined Kami Marquez. I have discussed the examination findings, diagnosis, and treatment options with Kami Marquez and/or her family. I have also reviewed and agree with the assessment and plan as stated above and agree with all its relevant components. I gave the patient the opportunity to ask questions about the findings, diagnosis, and treatment options. documented in this encounter [facility] Evaluation note Note Date & Type Note Facility documented in this encounter [facility] Evaluation note Note Date & Type Note Facility documented in this encounter [facility] Work Phone: History of Present illness Narrative Note Date & Type Note Facility History of Present illness Narrative Left Kneexray mod arthritis xray 2020PT ordered2 weeks left eyesystane drops and warm compressessforeign body sensationno trauma but was using weed eatersome drainage in the am and tearingleft balll of foot and the heel feels like plantar fasctitisnew shoes new insertstreated with stretching and rolling on ice bottleotc nonefirst steps hurt for whileDr matilde per gyncolonoscopy 2011neg fxhx for colon canceranswered questions about covid vaccineNo chest pain occasional palpitations chronic unchanged from previousNo bowel changesall other systems have been reviewed and are negative except as noted in the HPI [facility] Work Phone: History of Present illness Narrative Note Date & Type Note Facility History of Present illness Narrative Presents for annual exam. She voices no complaints and is doing well. Denies any bowel or bladder problems. Denies any breast problems. She had previous hysterectomy. [address] Work Phone: Summary Purpose Family History No Family History Records Found Mother Name Dates Details Family history of lung cance r(V16.1, Z80.1) Status:Active Father Name Dates Details Family history of malignant neoplasm of urinary bladder(V16.52, Z80.52) Status:Active Mother Name Dates Details Family history of lung cance r(V16.1, Z80.1) Status:Active Father Name Dates Details Family history of malignant neoplasm of urinary bladder(V16.52, Z80.52) Status:Active Mother Name Dates Details Family history of lung cance r(V16.1, Z80.1) Status:Active Father Name Dates Details Family history of malignant neoplasm of urinary bladder(V16.52, Z80.52) Status:Active Unknown Family Member Name Dates Details Family history of lung cance r: Mother(V16.1, Z80.1) Status:Active Family history of malignant neoplasm of urinary bladder: Father(V16.52, Z80.52) Status:Active Unknown Family Member Name Dates Details Family history of lung cance r: Mother(V16.1, Z80.1) Status:Active Family history of malignant neoplasm of urinary bladder: Father(V16.52, Z80.52) Status:Active Unknown Family Member Name Dates Details Family history of lung cance r: Mother(V16.1, Z80.1) Status:Active Family history of malignant neoplasm of urinary bladder: Father(V16.52, Z80.52) Status:Active Unknown Family Member Name Dates Details Family history of lung cance r: Mother(V16.1, Z80.1) Status:Active Family history of malignant neoplasm of urinary bladder: Father(V16.52, Z80.52) Status:Active Unknown Family Member Name Dates Details Family history of malignant neoplasm of urinary bladder: Father(V16.52, Z80.52) Status:Active Family history of lung cance r: Mother(V16.1, Z80.1) Status:Active Unknown Family Member Name Dates Details Family history of lung cance r: Mother(V16.1, Z80.1) Status:Active Family history of malignant neoplasm of urinary bladder: Father(V16.52, Z80.52) Status:Active Unknown Family Member Name Dates Details Family history of lung cance r: Mother(V16.1, Z80.1) Status:Active Family history of malignant neoplasm of urinary bladder: Father(V16.52, Z80.52) Status:Active Unknown Family Member Name Dates Details Family history of lung cance r: Mother(V16.1, Z80.1) Status:Active Family history of malignant neoplasm of urinary bladder: Father(V16.52, Z80.52) Status:Active Unknown Family Member Name Dates Details Family history of lung cance r: Mother(V16.1, Z80.1) Status:Active Family history of malignant neoplasm of urinary bladder: Father(V16.52, Z80.52) Status:Active Unknown Family Member Name Dates Details Family history of lung cance r: Mother(V16.1, Z80.1) Status:Active Family history of malignant neoplasm of urinary bladder: Father(V16.52, Z80.52) Status:Active Unknown Family Member Name Dates Details Family history of lung cance r: Mother(V16.1, Z80.1) Status:Active Family history of malignant neoplasm of urinary bladder: Father(V16.52, Z80.52) Status:Active Advance Directives No Advanced Directives Records FoundNo Advanced Directives Records FoundNo Advanced Directives Records FoundNo Advanced Directives Records FoundNo Advanced Directives Records FoundNo Advanced Directives Records FoundNo Advanced Directives Records FoundNo Advanced Directives Records Found Chief Complaint cpx. pt also c/o left eye pain and left foot pain.Patient is here for her yearly exam and pap test. Hysterectomy in 2000. Patient does not do regularself breast exams and has no concerns at this time. Medications Administered Section Active Administered Medications - up to 3 most recent administrations Medication Order MAR Action Action Date Dose Rate Site fluorescein-benoxinate 0.25-0.4 % 1 Drop (FLURESS) 1 Drop, BOTH EYES, DIRECTED, Starting on Thu08/18/22 at 1500, Until Thu08/19/22 at 0259, Administer for applanation tonometry. In the event of a Fluress shortage, administer Araceli-Fluor 1 drop into both eyes as directed for applanation tonometry Given 08/18/2022 3:00 PM EDT 1 Drop PHENYLephrine 2.5 % 1 Drop (AK-DILATE, GUS-SYNEPHRINE) 1 Drop, BOTH EYES, DIRECTED, Starting on Thu08/18/22 at 1500, Until Thu08/19/22 at 0259, Administer for dilation PROTECT FROM LIGHT Given 08/18/2022 3:00 PM EDT 1 Drop proparacaine 0.5 % 1 Drop (ALCAINE) 1 Drop, BOTH EYES, DIRECTED, Starting on Thu08/18/22 at 1500, Until Thu08/19/22 at 0259, Administer for pneumo tonometry, tonopen tonometry, or pachymetry. In the event of a proparacaine shortage, administer tetracaine 0.5% ophthalmic drops 1 drop in the left eye as directed for pneumo tonometry, tonopen tonometry, or pachymetry Given 08/18/2022 3:00 PM EDT 1 Drop tropicamide 1 % 1 Drop (MYDRIACYL) 1 Drop, BOTH EYES, DIRECTED, Starting on Thu08/18/22 at 1500, Until Thu08/19/22 at 0259, Administer for dilation Given 08/18/2022 3:00 PM EDT 1 Drop Additional Source Comments INFORMATION SOURCE (unrecogn ized section and content) DATE CREATED AUTHOR AUTHOR'S ORGANIZ ATION 10/22/2018 [facility] DATE CREATED AUTHOR AUTHOR'S ORGANIZ ATION 11/22/2021 [employer] DATE CREATED AUTHOR AUTHOR'S ORGANIZ ATION 08/19/2022 [facility] DATE CREATED AUTHOR AUTHOR'S ORGANIZ ATION 10/30/2022 [facility] DATE CREATED AUTHOR AUTHOR'S ORGANIZ ATION 2022 [facility] DATE CREATED AUTHOR AUTHOR'S ORGANIZ ATION 12/04/2022 [facility] DATE CREATED AUTHOR AUTHOR'S ORGANIZ ATION 12/05/2022 [facility] Source Comments (unrecognize d section and content) In the event this informatio n is protected by the Federal Confidentiality of Alcohol and Drug Abuse Patient Records regulations: The Federal rules restrict any use of the information to criminally investigate or prosecute any alcohol or drug abuse patient.[facility] Reason for Visit (unrecogniz ed section and content) Reason Comments Annual Exam Care Teams (unrecognized sec tion and content) [employer]anning [employer] Attendant Relationship Specialty Start Date End Date Migdalia Lindo MD [address] [place] [facility] [place], [place] [address] PCP - General 03/09/19 Migdalia Lindo MD [address] [place] [facility] [place], [place] [id number] PCP - MMO ACO PCP 05/04/21 FOR RECORDS PERTAINING TO PATIENTS WHO ARE OR HAVE BEEN ENROLLED IN A CHEMICAL DEPENDENCY/SUBSTANCEABUSE PROGRAM, SOME INFORMATION MAY BE OMITTED. This clinical summary was aggregated from multiple sources. Caution should be exercised in using it in the provision of clinical care. This summary normalizes information from multiple sources, and as a consequence, information in this document may materially change the coding, format and clinical context of patient data. In addition, data may be omitted in some cases. CLINICAL DECISIONS SHOULD BE BASED ON THE PRIMARY CLINICAL RECORDS. [facility] [employer] [facility]. provides no warranty or guarantee of the accuracy or completeness of information in this document.
== END | disposition home or self-care (01) ==
LOC: MTLAB 13:47
PROVIDERS: PCP Family Medicine; Referring Provider Internal Medicine Rheumatology; Visit Provider Internal Medicine Rheumatology
DX: M06.4 Inflammatory polyarthropathy (principal); M19.041 Primary osteoarthritis, right hand; M19.042 Primary osteoarthritis, left hand; M17.0 Bilateral primary osteoarthritis of knee; Z79.899 Other long term (current) drug therapy
CPT/HCPCS: 36415; 80053; 85025

== ENCOUNTER → 2023-10-06 | Outpatient (CLI) | payer MEDICARE, SELFPAY ==
[2023-10-06 15:52] LABS: Absolute Lymphocyte Count 1.74 X10^3/uL (0.83-4.51); Absolute Neutrophil Count 2.8 X10^3/uL (2.0-7.7); Basophil# 0.06 X10^3/uL; Basophil% 1.2 % (0-1); Eosinophil# 0.15 X10^3/uL; Hematocrit 37.4 % (37-47); Hemoglobin 12.3 g/dL (12.0-15.0); Lymphocyte # 1.74 X10^3/ul (0.83-4.51); Lymphocyte % 34.4 % (19-41); Mean Corp Hgb Conc 32.9 g/dL (32-36); Mean Corpuscular Hgb 31.1 pg (27.0-32.0); Mean Corpuscular Volume 94.7 fL (81-99); Mean Platelet Vol. 11.2 fl (6.2-12.0); Monocyte# 0.28 X10^3/uL; Monocyte% 5.5 % (0-10); NRBC Flagged by Analyzer 0 % (0-5); Neutrophil # 2.82 X10^3/uL (2.7-7.7); Neutrophil % 55.7 % (47-70); Platelet Count 242 K/mm3 (150-450); RBC Distribution Width CV 13.2 % (11.6-14.6); RBC Distribution Width SD 45.5 fl (35.1-43.9); Red Blood Count 3.95 M/mm3 (4.2-5.4); White Blood Count 5.1 K/mm3 (4.4-11.0)
[2023-10-06 16:15] LABS: ALB/GLOB Ratio 1.2 RATIO (0.9-2.4); AST(SGOT) 24 U/L (15-37); Alanine Aminotransfer ALT/SGPT 35 U/L (13-56); Albumin, Serum 3.8 g/dL (3.2-5.0); Alkaline Phosphatase 66 U/L (45-117); Anion Gap 6 (5-15); BUN 16 mg/dL (7-18); BUN/Creat Ratio 20.1 RATIO (10-20); Calcium,Total 9.9 mg/dL (8.5-10.1); Chloride 109 mmol/L (98-107); EST Glomerular Filtration Rate 77 mL/min (>60); Est Glom Filt Rate - Afr Amer 93 mL/min (>60); Globulin 3.3 g/dL (2.2-4.2); Glucose 129 mg/dL (74-106); Potassium 3.5 mmol/L (3.5-5.1); Protein, Total 7.1 g/dL (6.4-8.2); Sodium Level 141 mmol/L (136-145)
== END | disposition home or self-care (01) ==
LOC: MTLAB 12:44
PROVIDERS: PCP Family Medicine; Referring Provider Internal Medicine Rheumatology; Visit Provider Internal Medicine Rheumatology
DX: M06.4 Inflammatory polyarthropathy (principal); Z79.899 Other long term (current) drug therapy
CPT/HCPCS: 36415; 80053; 85025

== ENCOUNTER → 2023-12-31 | Outpatient (CLI) | payer MEDICARE, SELFPAY ==
[2023-12-31 15:15] LABS: Absolute Lymphocyte Count 1.67 X10^3/uL (0.83-4.51); Absolute Neutrophil Count 3.4 X10^3/uL (2.0-7.7); Basophil# 0.08 X10^3/uL; Basophil% 1.4 % (0-1); Eosinophil# 0.18 X10^3/uL; Eosinophils% 3.1 % (0-5); Hematocrit 35.6 % (37-47); Hemoglobin 12.1 g/dL (12.0-15.0); Lymphocyte # 1.67 X10^3/ul (0.83-4.51); Lymphocyte % 28.6 % (19-41); Mean Corpuscular Hgb 31.8 pg (27.0-32.0); Mean Corpuscular Volume 93.7 fL (81-99); Monocyte# 0.52 X10^3/uL; Monocyte% 8.9 % (0-10); NRBC Flagged by Analyzer 0 % (0-5); Neutrophil # 3.37 X10^3/uL (2.7-7.7); Neutrophil % 57.8 % (47-70); Platelet Count 239 K/mm3 (150-450); RBC Distribution Width CV 13.5 % (11.6-14.6); RBC Distribution Width SD 45.7 fl (35.1-43.9); White Blood Count 5.8 K/mm3 (4.4-11.0)
[2023-12-31 16:17] LABS: ALB/GLOB Ratio 1.3 RATIO (0.9-2.4); AST(SGOT) 24 U/L (15-37); Alanine Aminotransfer ALT/SGPT 30 U/L (13-56); Albumin, Serum 3.8 g/dL (3.2-5.0); Alkaline Phosphatase 67 U/L (45-117); Anion Gap 8 (5-15); BUN 10 mg/dL (7-18); BUN/Creat Ratio 13.3 RATIO (10-20); Chloride 109 mmol/L (98-107); Creatinine, Serum 0.75 mg/dL (0.55-1.02); EST Glomerular Filtration Rate 82 mL/min (>60); Est Glom Filt Rate - Afr Amer 99 mL/min (>60); Glucose 129 mg/dL (74-106); Potassium 3.7 mmol/L (3.5-5.1); Protein, Total 6.8 g/dL (6.4-8.2); Sodium Level 141 mmol/L (136-145)
== END | disposition home or self-care (01) ==
LOC: MTLAB 13:11
PROVIDERS: PCP Family Medicine; Referring Provider Internal Medicine Rheumatology; Visit Provider Internal Medicine Rheumatology
DX: M06.4 Inflammatory polyarthropathy (principal); M19.041 Primary osteoarthritis, right hand; M17.0 Bilateral primary osteoarthritis of knee; Z79.899 Other long term (current) drug therapy
CPT/HCPCS: 36415; 80053; 85025

== ENCOUNTER → 2024-03-28 | Outpatient (CLI) | payer MEDICARE, SELFPAY ==
[2024-03-28 10:30] LABS: Absolute Lymphocyte Count 1.38 X10^3/uL (0.83-4.51); Absolute Neutrophil Count 3.3 X10^3/uL (2.0-7.7); Basophil# 0.06 X10^3/uL; Basophil% 1.1 % (0-1); Eosinophil# 0.13 X10^3/uL; Eosinophils% 2.5 % (0-5); Hematocrit 38.8 % (37-47); Hemoglobin 12.7 g/dL (12.0-15.0); Lymphocyte # 1.38 X10^3/ul (0.83-4.51); Lymphocyte % 26.1 % (19-41); Mean Corp Hgb Conc 32.7 g/dL (32-36); Mean Corpuscular Hgb 31.8 pg (27.0-32.0); Mean Corpuscular Volume 97.2 fL (81-99); Mean Platelet Vol. 10.8 fl (6.2-12.0); Monocyte# 0.43 X10^3/uL; Monocyte% 8.1 % (0-10); NRBC Flagged by Analyzer 0 % (0-5); Neutrophil # 3.26 X10^3/uL (2.7-7.7); Neutrophil % 61.8 % (47-70); Platelet Count 242 K/mm3 (150-450); RBC Distribution Width CV 13.2 % (11.6-14.6); Red Blood Count 3.99 M/mm3 (4.2-5.4); White Blood Count 5.3 K/mm3 (4.4-11.0)
[2024-03-28 11:17] LABS: ALB/GLOB Ratio 1.2 RATIO (0.9-2.4); AST(SGOT) 26 U/L (15-37); Alanine Aminotransfer ALT/SGPT 36 U/L (13-56); Albumin, Serum 3.9 g/dL (3.2-5.0); Alkaline Phosphatase 69 U/L (45-117); Anion Gap 6 (5-15); BUN 14 mg/dL (7-18); BUN/Creat Ratio 18.9 RATIO (10-20); Calcium,Total 9.7 mg/dL (8.5-10.1); Chloride 107 mmol/L (98-107); Creatinine, Serum 0.74 mg/dL (0.55-1.02); EST Glomerular Filtration Rate 83 mL/min (>60); Est Glom Filt Rate - Afr Amer 101 mL/min (>60); Globulin 3.2 g/dL (2.2-4.2); Glucose 77 mg/dL (74-106); Potassium 3.7 mmol/L (3.5-5.1); Protein, Total 7.1 g/dL (6.4-8.2); Sodium Level 140 mmol/L (136-145)
== END | disposition home or self-care (01) ==
PROVIDERS: PCP Family Medicine; Referring Provider Internal Medicine Rheumatology; Visit Provider Internal Medicine Rheumatology
DX: M06.4 Inflammatory polyarthropathy (principal); M19.041 Primary osteoarthritis, right hand; M19.042 Primary osteoarthritis, left hand; M17.0 Bilateral primary osteoarthritis of knee; Z79.899 Other long term (current) drug therapy
CPT/HCPCS: 36415; 80053; 85025

== ENCOUNTER → 2024-06-29 | Outpatient (CLI) | payer MEDICARE, SELFPAY ==
[2024-06-29 10:28] LABS: Absolute Lymphocyte Count 1.47 X10^3/uL (0.83-4.51); Absolute Neutrophil Count 3.9 X10^3/uL (2.0-7.7); Basophil# 0.07 X10^3/uL; Basophil% 1.2 % (0-1); Eosinophil# 0.09 X10^3/uL; Eosinophils% 1.5 % (0-5); Hematocrit 40.7 % (37-47); Hemoglobin 13.1 g/dL (12.0-15.0); Lymphocyte # 1.47 X10^3/ul (0.83-4.51); Lymphocyte % 24.9 % (19-41); Mean Corp Hgb Conc 32.2 g/dL (32-36); Mean Corpuscular Hgb 31.5 pg (27.0-32.0); Mean Corpuscular Volume 97.8 fL (81-99); Mean Platelet Vol. 10.7 fl (6.2-12.0); Monocyte# 0.38 X10^3/uL; Monocyte% 6.4 % (0-10); NRBC Flagged by Analyzer 0 % (0-5); Neutrophil # 3.88 X10^3/uL (2.7-7.7); Neutrophil % 65.8 % (47-70); Platelet Count 231 K/mm3 (150-450); RBC Distribution Width CV 13.4 % (11.6-14.6); RBC Distribution Width SD 48.4 fl (35.1-43.9); Red Blood Count 4.16 M/mm3 (4.2-5.4); White Blood Count 5.9 K/mm3 (4.4-11.0)
[2024-06-29 10:53] LABS: ALB/GLOB Ratio 1.7 RATIO (0.9-2.4); AST(SGOT) 39 U/L (<=31); Alanine Aminotransfer ALT/SGPT 57 U/L (<=34); Albumin, Serum 4.6 g/dL (3.4-4.8); Alkaline Phosphatase 68 U/L (35-104); Anion Gap 11 (5-15); BUN 13 mg/dL (4-19); BUN/Creat Ratio 19.4 RATIO (10-20); Calcium 10.1 mg/dL (7.6-11.0); Carbon Dioxide 26.4 mmol/L (22.0-29.0); Chloride 103 mmol/L (96-108); Creatinine, Serum 0.7 mg/dL (0.6-1.0); EST Glomerular Filtration Rate 96 (>60); Globulin 2.6 g/dL (2.2-4.2); Glucose 91 mg/dL (70-99); Potassium 4.1 mmol/L (3.3-5.1); Protein, Total 7.2 g/dL (5.9-8.4); Sodium Level 141 mmol/L (133-145); Total Bilirubin 0.38 mg/dL (0.00-1.30)
== END | disposition home or self-care (01) ==
LOC: MTLAB 08:58
PROVIDERS: PCP Family Medicine; Referring Provider Internal Medicine Rheumatology; Visit Provider Internal Medicine Rheumatology
DX: M06.4 Inflammatory polyarthropathy (principal); Z79.899 Other long term (current) drug therapy
CPT/HCPCS: 36415; 80053; 85025

== ENCOUNTER → 2024-07-07 | Outpatient (CLI) | payer MEDICARE, SELFPAY ==
--- NOTE | 2024-07-07 07:26 | US_ITS ---
PROCEDURE: ABDOMEN LIMITED REASON FOR EXAM: ELEVATED LIVER ENZYMES COMPARISON: None FINDINGS: Liver: Echogenic. 15.4 cm in length. 1.1 x 0.8 x 1.1 cm left lobe cyst superiorly. Gallbladder: No visualized stones, sludge, wall thickening or pericholecystic fluid. Reportedly, sonographic Summers's was negative. Common bile duct: Mild dilatation of the CBD to 7-10 mm. Pancreas: Partially obscured by bowel gas. Visualized portions are sonographically unremarkable. Right kidney: Unremarkable. 11.3 cm in length. Fullness of the prominent extrarenal pelvis without radha caliectasis/hydronephrosis. Other: No visualized free fluid. US/Abdomen Limited IMPRESSION: 1. Mild dilatation of the CBD to 7-10 mm. No visualized choledocholithiasis or other obstructing process. Correlate with the pattern of reported LFT elevation and recommend clinical follow-up such as MRI abdomen with MRCP or CT if there is a contraindication to evaluate for nonvisualized obstructing process. 2. Diffuse hepatic steatosis. Correlate for clinical and laboratory evidence o f chronic liver disease. 3. Additional description as above. Reading Location: [id number]
== END | disposition home or self-care (01) ==
LOC: US 07:26
PROVIDERS: PCP Family Medicine; Referring Provider Internal Medicine Rheumatology; Visit Provider Internal Medicine Rheumatology
DX: R74.8 Abnormal levels of other serum enzymes (principal); M06.4 Inflammatory polyarthropathy; M19.041 Primary osteoarthritis, right hand; M19.042 Primary osteoarthritis, left hand; M17.0 Bilateral primary osteoarthritis of knee; Z79.899 Other long term (current) drug therapy
CPT/HCPCS: 76705

== ENCOUNTER → 2024-07-29 | Outpatient (CLI) | payer MEDICARE, SELFPAY ==
[2024-07-29 16:38] LABS: ALB/GLOB Ratio 1.9 RATIO (0.9-2.4); AST(SGOT) 35 U/L (<=31); Alanine Aminotransfer ALT/SGPT 42 U/L (<=34); Albumin, Serum 4.5 g/dL (3.4-4.8); Alkaline Phosphatase 73 U/L (35-104); Anion Gap 13 (5-15); BUN 15 mg/dL (4-19); BUN/Creat Ratio 19.3 RATIO (10-20); Calcium,Total 9.8 mg/dL (7.6-11.0); Carbon Dioxide 21.5 mmol/L (21.0-32.0); Chloride 106 mmol/L (98-108); Creatinine, Serum 0.78 mg/dL (0.70-1.20); EST Glomerular Filtration Rate 83 (>60); Globulin 2.4 g/dL (2.2-4.2); Glucose 119 mg/dL (70-99); Potassium 3.9 mmol/L (3.3-5.1); Protein, Total 6.9 g/dL (5.9-8.4); Sodium Level 140 mmol/L (133-145); Total Bilirubin 0.16 mg/dL (0.00-1.30)
== END | disposition home or self-care (01) ==
LOC: MTLAB 13:40
PROVIDERS: PCP Family Medicine; Referring Provider Internal Medicine Rheumatology; Visit Provider Internal Medicine Rheumatology
DX: M06.4 Inflammatory polyarthropathy (principal); M19.041 Primary osteoarthritis, right hand; M19.042 Primary osteoarthritis, left hand; M17.0 Bilateral primary osteoarthritis of knee; Z79.899 Other long term (current) drug therapy
CPT/HCPCS: 36415; 80053

== ENCOUNTER → 2024-09-15 | Outpatient (CLI) | payer MEDICARE, SELFPAY ==
[2024-09-15 15:13] LABS: Absolute Lymphocyte Count 1.88 X10^3/uL (0.83-4.51); Absolute Neutrophil Count 3.2 X10^3/uL (2.0-7.7); Basophil# 0.07 X10^3/uL; Basophil% 1.2 % (0-1); Eosinophil# 0.13 X10^3/uL; Eosinophils% 2.3 % (0-5); Hematocrit 36.9 % (37-47); Hemoglobin 12.7 g/dL (12.0-15.0); Lymphocyte # 1.88 X10^3/ul (0.83-4.51); Lymphocyte % 32.6 % (19-41); Mean Corp Hgb Conc 34.4 g/dL (32-36); Mean Corpuscular Hgb 31.5 pg (27.0-32.0); Mean Corpuscular Volume 91.6 fL (81-99); Mean Platelet Vol. 10.8 fl (6.2-12.0); Monocyte# 0.53 X10^3/uL; Monocyte% 9.2 % (0-10); NRBC Flagged by Analyzer 0 % (0-5); Neutrophil # 3.15 X10^3/uL (2.7-7.7); Neutrophil % 54.5 % (47-70); Platelet Count 241 K/mm3 (150-450); RBC Distribution Width CV 12.2 % (11.6-14.6); Red Blood Count 4.03 M/mm3 (4.2-5.4); White Blood Count 5.8 K/mm3 (4.4-11.0)
[2024-09-15 18:05] LABS: ALB/GLOB Ratio 1.8 RATIO (0.9-2.4); AST(SGOT) 31 U/L (<=31); Alanine Aminotransfer ALT/SGPT 28 U/L (<=34); Albumin, Serum 4.4 g/dL (3.4-4.8); Alkaline Phosphatase 65 U/L (35-104); Anion Gap 11 (5-15); BUN 12 mg/dL (4-19); BUN/Creat Ratio 16.4 RATIO (10-20); Calcium,Total 10.3 mg/dL (7.6-11.0); Carbon Dioxide 24.1 mmol/L (21.0-32.0); Chloride 104 mmol/L (98-108); Creatinine, Serum 0.73 mg/dL (0.70-1.20); EST Glomerular Filtration Rate 91 (>60); Globulin 2.4 g/dL (2.2-4.2); Glucose 90 mg/dL (70-99); Potassium 3.8 mmol/L (3.3-5.1); Protein, Total 6.8 g/dL (5.9-8.4); Sodium Level 140 mmol/L (133-145)
== END | disposition home or self-care (01) ==
LOC: MTLAB 13:26
PROVIDERS: PCP Family Medicine; Referring Provider Internal Medicine Rheumatology; Visit Provider Internal Medicine Rheumatology
DX: M06.4 Inflammatory polyarthropathy (principal); Z79.899 Other long term (current) drug therapy; K76.0 Fatty (change of) liver, not elsewhere classified
CPT/HCPCS: 36415; 80053; 85025

== ENCOUNTER → 2024-10-14 | Outpatient (CLI) | payer MEDICARE, SELFPAY ==
[2024-10-14 14:46] LABS: ALB/GLOB Ratio 1.7 RATIO (0.9-2.4); AST(SGOT) 38 U/L (<=31); Alanine Aminotransfer ALT/SGPT 43 U/L (<=34); Albumin, Serum 4.4 g/dL (3.4-4.8); Alkaline Phosphatase 75 U/L (35-104); Anion Gap 12 (5-15); BUN 14 mg/dL (4-19); BUN/Creat Ratio 19.3 RATIO (10-20); Calcium,Total 9.7 mg/dL (7.6-11.0); Carbon Dioxide 24.2 mmol/L (21.0-32.0); Chloride 105 mmol/L (98-108); Creatinine, Serum 0.75 mg/dL (0.70-1.20); EST Glomerular Filtration Rate 88 (>60); Globulin 2.5 g/dL (2.2-4.2); Glucose 115 mg/dL (70-99); Potassium 3.8 mmol/L (3.3-5.1); Protein, Total 6.9 g/dL (5.9-8.4); Sodium Level 141 mmol/L (133-145); Total Bilirubin 0.28 mg/dL (0.00-1.30)
== END | disposition home or self-care (01) ==
LOC: MTLAB 08:41
PROVIDERS: PCP Family Medicine; Referring Provider Internal Medicine Rheumatology; Visit Provider Internal Medicine Rheumatology
DX: M06.4 Inflammatory polyarthropathy (principal); M19.041 Primary osteoarthritis, right hand; M17.0 Bilateral primary osteoarthritis of knee; Z79.899 Other long term (current) drug therapy
CPT/HCPCS: 36415; 80053

== ENCOUNTER → 2024-11-22 | Outpatient (CLI) | payer MEDICARE, SELFPAY ==
[2024-11-22 13:22] LABS: AST(SGOT) 32 U/L (<=31); Alanine Aminotransfer ALT/SGPT 35 U/L (<=34); Albumin, Serum 4.3 g/dL (3.4-4.8); Alkaline Phosphatase 66 U/L (35-104); Anion Gap 12 (5-15); BUN 12 mg/dL (4-19); BUN/Creat Ratio 15.8 RATIO (10-20); Calcium,Total 9.7 mg/dL (7.6-11.0); Carbon Dioxide 25.9 mmol/L (21.0-32.0); Chloride 105 mmol/L (98-108); Globulin 2.5 g/dL (2.2-4.2); Glucose 83 mg/dL (70-99); Potassium 3.5 mmol/L (3.3-5.1)
== END | disposition home or self-care (01) ==
LOC: MTLAB 09:52
PROVIDERS: PCP Family Medicine; Referring Provider Internal Medicine Rheumatology; Visit Provider Internal Medicine Rheumatology
DX: M06.4 Inflammatory polyarthropathy (principal); M19.041 Primary osteoarthritis, right hand; M19.042 Primary osteoarthritis, left hand; M17.0 Bilateral primary osteoarthritis of knee; Z79.899 Other long term (current) drug therapy
CPT/HCPCS: 36415; 80053

== ENCOUNTER → 2025-01-19 | Outpatient (CLI) | payer MEDICARE, SELFPAY ==
[2025-01-19 15:41] LABS: AST(SGOT) 31 U/L (<=31); Alanine Aminotransfer ALT/SGPT 40 U/L (<=34); Albumin, Serum 4.3 g/dL (3.4-4.8); Alkaline Phosphatase 66 U/L (35-104); Anion Gap 15 (5-15); BUN 10 mg/dL (4-19); BUN/Creat Ratio 13.5 RATIO (10-20); Calcium,Total 10.2 mg/dL (7.6-11.0); Carbon Dioxide 22.6 mmol/L (21.0-32.0); Chloride 103 mmol/L (98-108); Globulin 2.7 g/dL (2.2-4.2); Glucose 149 mg/dL (70-99); Potassium 3.8 mmol/L (3.3-5.1)
[2025-01-19 16:06] LABS: Hematocrit 37.1 % (37-47); Hemoglobin 12.5 g/dL (12.0-15.0); Immature Granulocytes Count 0.030 X10^3/uL (0.0-0.0); Mean Corp Hgb Conc 33.7 g/dL (32-36); Mean Corpuscular Volume 93.2 fL (81-99); Mean Platelet Vol. 11.9 fl (6.2-12.0); NRBC Flagged by Analyzer 0 % (0-5); Platelet Count 197 K/mm3 (150-450); RBC Distribution Width CV 13.1 % (11.6-14.6); RBC Distribution Width SD 44.2 fl (35.1-43.9); Red Blood Count 3.98 M/mm3 (4.2-5.4); White Blood Count 6.6 K/mm3 (4.4-11.0)
== END | disposition home or self-care (01) ==
LOC: MTLAB 12:36
PROVIDERS: PCP Family Medicine; Referring Provider Internal Medicine Rheumatology; Visit Provider Internal Medicine Rheumatology
DX: M06.4 Inflammatory polyarthropathy (principal); M19.041 Primary osteoarthritis, right hand; M19.042 Primary osteoarthritis, left hand; M17.0 Bilateral primary osteoarthritis of knee; Z79.899 Other long term (current) drug therapy
CPT/HCPCS: 36415; 80053; 85025

== ENCOUNTER → 2025-04-06 | Outpatient (CLI) | payer MEDICARE, SELFPAY ==
[2025-04-06 12:42] LABS: Hematocrit 39.8 % (37-47); Hemoglobin 13.1 g/dL (12.0-15.0); Immature Granulocytes Count 0.020 X10^3/uL (0.0-0.0); Mean Corp Hgb Conc 32.9 g/dL (32-36); Mean Corpuscular Volume 94.8 fL (81-99); Mean Platelet Vol. 10.8 fl (6.2-12.0); NRBC Flagged by Analyzer 0 % (0-5); Platelet Count 247 K/mm3 (150-450); RBC Distribution Width CV 12.5 % (11.6-14.6); RBC Distribution Width SD 43.4 fl (35.1-43.9); Red Blood Count 4.20 M/mm3 (4.2-5.4); White Blood Count 7.1 K/mm3 (4.4-11.0)
[2025-04-06 13:22] LABS: AST(SGOT) 29 U/L (<=31); Alanine Aminotransfer ALT/SGPT 28 U/L (<=34); Albumin, Serum 4.5 g/dL (3.4-4.8); Alkaline Phosphatase 72 U/L (35-104); Anion Gap 12 (5-15); BUN 12 mg/dL (4-19); BUN/Creat Ratio 17.2 RATIO (10-20); Calcium,Total 10.2 mg/dL (7.6-11.0); Carbon Dioxide 26.5 mmol/L (21.0-32.0); Chloride 102 mmol/L (98-108); Globulin 2.7 g/dL (2.2-4.2); Glucose 108 mg/dL (70-99); Potassium 4.0 mmol/L (3.3-5.1)
== END | disposition home or self-care (01) ==
LOC: MTLAB 11:28
PROVIDERS: PCP Family Medicine; Referring Provider Internal Medicine Rheumatology; Visit Provider Internal Medicine Rheumatology
DX: M06.4 Inflammatory polyarthropathy (principal); Z79.899 Other long term (current) drug therapy
CPT/HCPCS: 36415; 80053; 85025